=== PATIENT | female | born 1935 | race Caucasian/White ===

== ENCOUNTER 2017-09-21 05:36 | Observation (INO) | payer MEDICARE ==
[~2017-09-21] VITALS: Ht 152.4 cm; Wt 67.5 kg
[~2017-09-21 05:36] MED LIST: ATOR80TA45 PO; CALC1TAB12 PO; COLA100C5 PO; FERR325T18 PO; GLUCCAP PO; LOSA100T3 PO; MULTTAB67 PO; NEXI20CA PO; OXYB5TAB8 PO
[2017-09-21] MEDS ORDERED: LACTATED RINGER'S 1000 ML IV PRN (06:00)
[2017-09-21] MEDS ORDERED: ceFAZolin 2 GM PREMIX 50 ML IV SCH (06:00)
[2017-09-21] MEDS ORDERED: CHLORHEXIDINE GLUCONATE 4% SOLN 120 ML BTL TOPICAL SCH (06:00)
[2017-09-21] MEDS ORDERED: SODIUM CHLORID 0.9% 500 ML IV PRN (06:00)
[2017-09-21] MEDS ORDERED: POVIDONE IODINE 5% (ANTISEPSIS KIT) 4 APPLICATIONS EACH NARE PRN (06:00)
[2017-09-21] MEDS ORDERED: METOPROLOL TARTRATE 25 MG TAB PO PRN (06:00)
[2017-09-21] MEDS ORDERED: CHLORHEXIDINE GLUCONATE 2 % 1 PACK (2 CLOTHS) TOPICAL PRN (06:00)
[2017-09-21] MEDS ORDERED: INSULIN HUMAN REGULAR 1,000 UNITS/10 ML VIAL SQ PRN (06:00)
[2017-09-21 06:20] VITALS: PULSE 58
[2017-09-21] MEDS ORDERED: MIDAZOLAM HCL 2 MG/2 ML VIAL ONE (06:26)
[2017-09-21] MEDS ORDERED: BUPIVACAINE HCL PF 0.5% 30 ML VIAL ONE ×2 (06:26→06:30)
[2017-09-21] MEDS ORDERED: FAT EMULSION 20% INJ 0 ML ONE (06:26)
[2017-09-21] MEDS ORDERED: MIDAZOLAM HCL 2 MG/2 ML VIAL IV ONE (06:30)
[2017-09-21] MEDS ORDERED: DO NOT ADM ANY ANTICOAGULANT DRUGS PRN (07:45)
[2017-09-21] MEDS: LACTATED RINGER'S 1000 ML INJ 1,000 ML IV SCH ×2 (08:00→17:28)
[2017-09-21] MEDS ORDERED: ONDANSETRON HCL 4 MG/2 ML VIAL IV PUSH PRN (08:00)
[2017-09-21] MEDS ORDERED: ACETAMINOPHEN/HYDROcodone 325 MG/5 MG TAB PO PRN ×2 (08:00)
[2017-09-21] MEDS ORDERED: MORPHINE SULFATE 4 MG/ML INJ IV PUSH PRN (08:00)
[2017-09-21] MEDS ORDERED: HYDR-3516 PO (08:02)
--- NOTE | 2017-09-21 08:05 | MP ---
cc: Emory Dow MD DATE OF OPERATION: 09/21/2017 PREOPERATIVE DIAGNOSIS: Carpal tunnel syndrome, right wrist. POSTOPERATIVE DIAGNOSIS: Carpal tunnel syndrome, right wrist. OPERATIVE PROCEDURE: Carpal tunnel release, right wrist. SURGEON: Dr. Dow. ANESTHESIA: General. TECHNIQUE: After induction of anesthesia, the right upper extremity thoroughly prepped with alcohol and ChloraPrep and draped in routine fashion. After application of Esmarch bandage, tourniquet was inflated to 250 mmHg. A vertical incision was made along the thenar crease and then zigzagging across the flexion crease of the wrist and proximally for 2 cm. The incision deepened through the subcutaneous tissue. Palmaris longus was divided in the line of the skin incision and a flexor retinaculum was incised. Dissection carried out underneath the volar carpal ligament, thereby dividing it vertically gradually for a complete release. The contents of the carpal tunnel were examined. There was nothing abnormal other than the fact that there is some constriction of the median nerve. Some epineural release was carried out, but nothing extensive. A release was carried out proximally for 2 cm. Tourniquet was released. Hemostasis obtained with cautery. Skin and subcutaneous tissue closed in a single layer of interrupted vertical mattress 4-0 nylon sutures. Dressings were applied with Xeroform, 4 x 4s and Sof-Rol and a volar well-padded fiberglass splint applied and secured with Amanda and Jesse bandage maintaining the wrist in some extension. There was good circulation to the fingers when we were done. The patient tolerated the procedure well. Transfusions and complications, none. Postop condition, satisfactory. Prognosis, good. Emory Dow MD SS/DL , 07:50 AM , 08:04 AM
[2017-09-21] MEDS ORDERED: METOPROLOL TARTRATE 5 MG/5 ML VIAL ONE ×2 (08:27→09:09)
--- NOTE | 2017-09-21 08:47 | EKG ---
Date Performed: 09/21/2017 Time Performed: 06:12:12 PTAGE: 82 years EKG: Sinus rhythm NORMAL ECG NO PREVIOUS TRACING DOCTOR: Syed Vaughn Interpretating Date/Time 09/21/2017 08:45:37
[2017-09-21] MEDS ORDERED: METOPROLOL TARTRATE 5 MG/5 ML VIAL IV PUSH ONE (09:15)
[2017-09-21 09:41] LABS: AUTOMATED NEUTROPHIL # 4.2 TH/MM3 (1.8-7.7); BASOPHIL # 0.1 TH/MM3 (0-0.2); EOSINOPHIL # 0.2 TH/MM3 (0-0.4); EOSINOPHIL % 2.9 % (0.0-4.0); HEMATOCRIT 35.1 % (35.0-46.0); HEMOGLOBIN 12.1 GM/DL (11.6-15.3); LYMPH % 13.6 % (9.0-44.0); LYMPHOCYTE # 0.7 TH/MM3 (1.0-4.8); MEAN CELL VOLUME 95.5 FL (80.0-100.0); MEAN CORPUSCULAR HEMOGLOBIN 33.1 PG (27.0-34.0); MEAN CORPUSCULAR HGB CONC 34.6 % (32.0-36.0); MEAN PLATELET VOLUME 7.8 FL (7.0-11.0); MONO % 3.9 % (0.0-8.0); MONOCYTE # 0.2 TH/MM3 (0-0.9); NEUT % 78.6 % (16.0-70.0); PLATELET COUNT 264 TH/MM3 (150-450); RED BLOOD COUNT 3.67 MIL/MM3 (4.00-5.30); RED CELL DISTRIBUTION WIDTH 13.3 % (11.6-17.2); WHITE BLOOD COUNT 5.4 TH/MM3 (4.0-11.0)
[2017-09-21] MEDS: METOPROLOL TARTRATE 25 MG TAB PO SCH ×3 (10:00→23:00)
--- NOTE | 2017-09-21 10:15 | EKG ---
Date Performed: 09/21/2017 Time Performed: 09:30:37 PTAGE: 82 years EKG: ATRIAL FIBRILLATION WITH RAPID VENTRICULAR RESPONSE LOW QRS VOLTAGE IN PRECORDIAL LEADS MOD ERATE ST DEPRESSION ABNORMAL ECG PREVIOUS TRACING : 09/21/2017 06.12 DOCTOR: Syed Vaughn Interpretating Date/Time 09/21/2017 10:13:32
[2017-09-21] MEDS ORDERED: PILL SPLITTER OTHER PRN (11:00)
[2017-09-21] MEDS ORDERED: METOPROLOL TARTRATE 5 MG/5 ML VIAL IV PRN (11:00)
[2017-09-21] MEDS ORDERED: SODIUM CHLORIDE 0.9% FLUSH 10 ML FLUSH IV FLUSH PRN (11:45)
[2017-09-21] MEDS ORDERED: NALOXONE HCL 0.4 MG/ML AMP IV PUSH PRN (11:45)
[2017-09-21] MEDS ORDERED: ePHEDrine/NS 25 MG/5 ML SYRINGE IV ONE (12:00)
[2017-09-21] MEDS ORDERED: PROPOFOL 200 MG/20 ML AMP IV ONE (12:00)
[2017-09-21] MEDS ORDERED: ONDANSETRON HCL 4 MG/2 ML VIAL IV ONE (12:00)
[2017-09-21] MEDS ORDERED: LIDOCAINE HCL 1% PF 5 ML SYRINGE OTHER ONE (12:00)
[2017-09-21] MEDS ORDERED: DEXAMETHASONE SOD PHOS 4 MG/ML VIAL IV ONE (12:00)
[2017-09-21] MEDS ORDERED: PHENYLEPH/NS 1000 MCG/10 ML SYR IV ONE (12:00)
--- NOTE | 2017-09-21 12:24 | HHI.HP ---
[facility] Sue Hairston D.O. Admission Diagnosis Diagnoses: Travel History International Travel<30 Days: No Contact w/Intl Traveler <30 Da: No Traveled to Known Affected Are: No History of Present Illness hx from patient, nursing staff and review of med records pt stated she came to hospital for her carpal tunnel sx of right hand post operatively, pt was noted to be in afib iwth HR around 120s to 130s orthopedics and anesthesiology had consulted cardiology who has given patient metoprolol 5mg iv x 3 with metoprolol 12.5 mg po one dose at time of my exam, pt's heart rate is 59 bp is stable at 118/70 pt denies any recent fever/ n/v/d/blood in stool or urine denies ches pain or palpitations or near syncopal denies any other symptoms denies prior hx of afib / tia/ cva Review of Systems Except as stated in HPI: all other systems reviewed are Neg Past Family Social History Past Medical History htn gerd hyperlipidemia urinary incontinence Past Surgical History left carpal tunnel right carpal tunnel today Allergies: Coded Allergies: *MDRO Multi-Drug Resistant Organism (Unverified Allergy, Unknown, 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 Family History none that she knows of Social History denies smoking/ eoth abuse/ drug abuse lives with her two grandsons Physical Exam Vital Signs Vital Signs Date Time Temp Pulse Resp B/P (MAP) Pulse Ox O2 Delivery O2 Flow Rate FiO2 09/21/17 08:45 114 16 109/68 (82) 98 Nasal Cannula 2 09/21/17 08:30 124 16 113/60 (77) 98 Nasal Cannula 2 09/21/17 08:15 122 16 132/65 (87) 94 Nasal Cannula 2 09/21/17 08:00 62 16 136/68 (90) 95 Room Air 09/21/17 07:45 97.6 60 16 130/61 (84) 93 09/21/17 06:36 Nasal Cannula 2 09/21/17 06:20 58 09/21/17 06:11 97.9 60 18 155/69 (97 99 Physical Exam GENERAL: This is a well-nourished, well-developed patient, in no apparent distress. SKIN: No rashes, ecchymoses or lesions. Cool and dry. HEAD: Atraumatic. Normocephalic. No temporal or scalp tenderness. EYES: No scleral icterus. No injection or drainage. ENT: Nose without bleeding, purulent drainage or septal hematoma. Airway patent. NECK: Trachea midline. No JVD. Supple, nontender, no meningeal signs. CARDIOVASCULAR: Regular rate and rhythm without murmurs, gallops, or rubs. RESPIRATORY: Clear to auscultation. Breath sounds equal bilaterally. No wheezes , rales, or rhonchi. GASTROINTESTINAL: Abdomen soft, non-tender, nondistended.No guarding. MUSCULOSKELETAL: Extremities without clubbing, cyanosis, or edema. . No calf tenderness. RUE with intact sensation, had nerve block done, no pain, able to move NEUROLOGICAL: Awake and alert. Motor and sensory grossly within normal limits. Normal speech. Laboratory Laboratory Tests Test 09/21/17 09:27 09/21/17 11:50 White Blood Count 5.4 Red Blood Count 3.67 Hemoglobin 12.1 Hematocrit 35.1 Mean Corpuscular Volume 95.5 Mean Corpuscular Hemoglobin 33.1 Mean Corpuscular Hemoglobin Concent 34.6 Red Cell Distribution Width 13.3 Platelet Count 264 Mean Platelet Volume 7.8 Neutrophils (%) (Auto) 78.6 Lymphocytes (%) (Auto) 13.6 Monocytes (%) (Auto) 3.9 Eosinophils (%) (Auto) 2.9 Basophils (%) (Auto) 1.0 Neutrophils # (Auto) 4.2 Lymphocytes # (Auto) 0.7 Monocytes # (Auto) 0.2 Eosinophils # (Auto) 0.2 Basophils # (Auto) 0.1 CBC Comment DIFF FINAL Differential Comment Result Diagram: 09/21/17926 Caprini VTE Risk Assessment Caprini VTE Risk Assessment: Mod/High Risk (score >= 2) Caprini Risk Assessment Model Point Value = 1 Point Value = 2 Point Value = 3 Point Value = 5 Age 41-60 Minor surgery BMI > 25 kg/m2 Swollen legs Varicose veins or History of unexplained or recurrent spontaneous Oral contraceptives or hormone replacement Sepsis (< 1 month) Serious lung disease, including pneumonia (< 1 month) Abnormal pulmonary function Acute myocardial infarction Congestive heart failure (< 1 month) History of inflammatory bowel disease Medical patient at bed rest Age 61-74 Arthroscopic surgery Major open surgery (> 45 min) Laparoscopic surgery (> 45 min) Malignancy Confined to bed (> 72 hours) Immobilizing plaster cast Central venous access Age >= 75 History of VTE Family history of VTE Factor V Leiden Prothrombin [id number] Lupus anticoagulant Anticardiolipin antibodies Elevated serum homocysteine Heparin-induced thrombocytopenia Other congenital or acquired thrombophilia Stroke (< 1 month) Elective arthroplasty Hip, pelvis, or leg fracture Acute spinal cord injury (< 1 month) Prophylaxis Regimen Total Risk Factor Score Risk Level Prophylaxis Regimen 0-1 Low Early ambulation 2 Moderate Order ONE of the following: *Sequential Compression Device (SCD) *Heparin 5000 units SQ BID 3-4 Higher Order ONE of the following medications: *Heparin 5000 units SQ TID *Enoxaparin/Lovenox 40 mg SQ daily (WT < 150 kg, CrCl > 30 mL/min) *Enoxaparin/Lovenox 30 mg SQ daily (WT < 150 kg, CrCl > 10-29 mL/min) *Enoxaparin/Lovenox 30 mg SQ BID (WT < 150 kg, CrCl > 30 mL/min) AND/OR *Sequential Compression Device (SCD) 5 or more Highest Order ONE of the following medications: *Heparin 5000 units SQ TID (Preferred with Epidurals) *Enoxaparin/Lovenox 40 mg SQ daily (WT < 150 kg, CrCl > 30 mL/min) *Enoxaparin/Lovenox 30 mg SQ daily (WT < 150 kg, CrCl > 10-29 mL/min) *Enoxaparin/Lovenox 30 mg SQ BID (WT < 150 kg, CrCl > 30 mL/min) AND *Sequential Compression Device (SCD) Assessment and Plan Assessment and Plan Impression: Afib, newly found s/p carpal tunnel surgery under general anesthesia HTN hyperlipidemia gerd urinary incontinence Plan: rate control with metoprolol per cardiology orders tele monitoring anticoagulation to discuss by cardiology echo resume brandan emeds watch for BP drop with addition of metoprolol Kareem Rodrigez MD Sep 21, 2017 12:24
[2017-09-21 12:37] LABS: ALBUMIN 3.8 GM/DL (3.4-5.0); ALT (GPT) 18 U/L (10-53); AST (GOT) 24 U/L (15-37); BICARBONATE 25.5 MEQ/L (21.0-32.0); BLOOD UREA NITROGEN 22 MG/DL (7-18); CALCIUM 9.1 MG/DL (8.5-10.1); CHLORIDE 105 MEQ/L (98-107); CREATININE 1.38 MG/DL (0.50-1.00); GLOMERULAR FILTRATION RATE 37 ML/MIN (>89); GLUCOSE,RANDOM 145 MG/DL (74-106); MAGNESIUM 2.2 MG/DL (1.5-2.5); SODIUM (NA) 138 MEQ/L (136-145)
[2017-09-21 12:40] LABS: ALKALINE PHOSPHATASE 67 U/L (45-117); TOTAL BILIRUBIN ADULT 0.4 MG/DL (0.2-1.0); TOTAL PROTEIN 7.3 GM/DL (6.4-8.2)
[2017-09-21 12:41] LABS: TROPONIN I LESS THAN 0.02 NG/ML (0.02-0.05)
--- NOTE | 2017-09-21 14:18 | RADRPT ---
EXAM DATE/TIME: 09/21/2017 14:40 [facility] COMPARISON: No previous studies available for comparison. INDICATIONS : New onset atrial fibrillation MEDICAL HISTORY : high blood pressure SURGICAL HISTORY : lower extremity surgery ENCOUNTER: Initial ACUITY: 1 day PAIN SCORE: 0/10 LOCATION: Bilateral chest FINDINGS: A single view of the chest demonstrates the lungs to be symmetrically aerated without evidence of mas s, infiltrate or effusion. The cardiomediastinal contours are unremarkable. Osseous structures are intact. Marked atherosclerotic disease. CONCLUSION: Normal examination. Bilateral shoulder arthroplasties. Syed Khan MD on September 21, 2017 at 14:15 Board Certified Radiologist. This report was verified electronically.
[2017-09-21 15:00] VITALS: BP 134/66; PULSE 54; RESP 20; TEMP 98; O2SAT 97
--- NOTE | 2017-09-21 15:14 | MB ---
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 The patient converted with IV Lopressor, p.o. Lopressor to sinus bradycardia. She denies chest pain, fever, chills, cough, GI or bleeding, PND, orthopnea, syncope or dizziness. PAST MEDICAL: As per History Of Present Illness. SOCIAL HISTORY: She is followed by Dr. Ella Hairston. ALLERGIES: Multi-drug resistant organism, "MRSA". MEDICATIONS: 1. Atorvastatin 80 mg at bedtime. 2. Docusate 100 mg b.i.d. 3. Calcium with vitamin D 500 b.i.d. 4. Ferrous sulfate 325 b.i.d. 5. Multivitamins 1 tab daily. 6. She received metoprolol 5 mg IV q.5 minutes x3. 7. She is on standing dose of Lopressor 12.5 mg p.o. every 6 hours. PHYSICAL EXAMINATION: VITAL SIGNS: Currently pulse is 54, blood pressure 130/61, respiratory rate 16, temperature recorded at 7:45 a.m. 97.6%. GENERAL: She is alert and oriented x3, in no acute distress. NECK: Supple. No JVD. No bruit. CARDIOVASCULAR: S1, S2. No murmurs, rubs or gallops. LUNGS: Clear to auscultation bilaterally. ABDOMEN: Soft, nontender, nondistended with positive bowel sounds. EXTREMITIES: No lower extremity edema. IMAGING STUDIES: Chest x-ray shows normal examination. Bilateral shoulder arthroplasties. EKG postop shows atrial fibrillation, rate of 113 beats per minute, T-wave inversion in V2 and V1. There also appears to be possible flutter waves in V1 and V2. Repeat EKG shows normal sinus rhythm at 62 beats per minute, otherwise normal. LABORATORY DATA: White count 5.4, hemoglobin 12.1, hematocrit 35.1, platelet count 264. INR is not done. Sodium 138, potassium 4.0, chloride 105, bicarbonate 25.5, BUN 22, creatinine 1.38, glucose 145. Troponin is less than 0.02. DIAGNOSES: 1. Paroxysmal atrial flutter with rapid ventricular response. 2. Chronic renal insufficiency and/or acute renal failure. 3. Status post bilateral shoulder arthroplasties. DISCUSSION: The patient's CHADS-VASc score is at least 3 given her age greater than 75 and female gender. Therefore, Coumadin and/or novel oral anticoagulant agent is indicated; however, she is immediately postop. Therefore, we will hold her anticoagulation. In the immediate postoperative setting she is cardioverted on Lopressor. I do want her admitted overnight for observation. If she is hemodynamically stable and asymptomatic in the a.m., she can be discharged from a cardiovascular standpoint. I have instructed her with a nurse present at the bedside to followup with me in the office the following day and to bring her pill bottles in with her. The patient understands. MD AMBERLY Zambrano/NATALIA , 02:51 PM , 03:13 PM
[2017-09-21] MEDS: FERROUS SULFATE 325 MG (65 MG ELEMENTAL IRON) TAB PO SCH (17:17)
[2017-09-21 17:24] LABS: TROPONIN I LESS THAN 0.02 NG/ML (0.02-0.05)
[2017-09-21] MEDS: MULTIVITAMIN TAB PO SCH (17:31)
[2017-09-21] MEDS ORDERED: GLUCOSAMINE CHONDROITIN VIT C PO SCH (21:00)
[2017-09-21] MEDS ORDERED: ATORVASTATIN 80 MG TAB PO SCH (21:00)
[2017-09-21] MEDS: OXYBUTYNIN CHLORIDE 5 MG TAB PO SCH (21:11)
[2017-09-21] MEDS: DOCUSATE SODIUM 100 MG CAP PO SCH (21:11)
[2017-09-21] MEDS: CALCIUM/VITAMIN D 250 MG/125 U TAB PO SCH (21:14)
[2017-09-21] MEDS: SODIUM CHLORIDE 0.9% FLUSH 10 ML FLUSH IV FLUSH SCH (21:17)
[2017-09-22] VITALS: BP_SYST 133; BP_DIAS 60; BP_DIAS 61; PULSE 53; PULSE 71; RESP 17; RESP 18; TEMP 97.3; TEMP 97.9; O2SAT 93; O2SAT 96
[2017-09-22 00:47] LABS: TROPONIN I LESS THAN 0.02 NG/ML (0.02-0.05)
[2017-09-22] MEDS: METOPROLOL TARTRATE 25 MG TAB PO SCH (05:34)
[2017-09-22 06:06] VITALS: BP 134/70; PULSE 53; RESP 18; TEMP 97.6
[2017-09-22] MEDS ORDERED: METO25TA3 PO (06:15)
[2017-09-22 07:54] VITALS: BP 157/70; PULSE 50; RESP 16; TEMP 97.8; O2SAT 94
[2017-09-22] MEDS: OXYBUTYNIN CHLORIDE 5 MG TAB PO SCH (08:25)
[2017-09-22] MEDS: FERROUS SULFATE 325 MG (65 MG ELEMENTAL IRON) TAB PO SCH (08:25)
[2017-09-22] MEDS: MULTIVITAMIN TAB PO SCH (08:25)
[2017-09-22] MEDS: DOCUSATE SODIUM 100 MG CAP PO SCH (08:26)
[2017-09-22] MEDS: CALCIUM/VITAMIN D 250 MG/125 U TAB PO SCH (08:26)
[2017-09-22] MEDS: SODIUM CHLORIDE 0.9% FLUSH 10 ML FLUSH IV FLUSH SCH (08:26)
[2017-09-22 08:58] LABS: AUTOMATED NEUTROPHIL # 4.9 TH/MM3 (1.8-7.7); BASOPHIL % 0.7 % (0.0-2.0); EOSINOPHIL # 0.1 TH/MM3 (0-0.4); EOSINOPHIL % 1.3 % (0.0-4.0); HEMATOCRIT 33.8 % (35.0-46.0); HEMOGLOBIN 11.6 GM/DL (11.6-15.3); LYMPH % 23.4 % (9.0-44.0); LYMPHOCYTE # 1.7 TH/MM3 (1.0-4.8); MEAN CELL VOLUME 95.8 FL (80.0-100.0); MEAN CORPUSCULAR HEMOGLOBIN 32.9 PG (27.0-34.0); MEAN CORPUSCULAR HGB CONC 34.4 % (32.0-36.0); MEAN PLATELET VOLUME 7.9 FL (7.0-11.0); MONO % 8.2 % (0.0-8.0); MONOCYTE # 0.6 TH/MM3 (0-0.9); NEUT % 66.4 % (16.0-70.0); PLATELET COUNT 327 TH/MM3 (150-450); RED BLOOD COUNT 3.53 MIL/MM3 (4.00-5.30); RED CELL DISTRIBUTION WIDTH 13.3 % (11.6-17.2); WHITE BLOOD COUNT 7.4 TH/MM3 (4.0-11.0)
[2017-09-22 09:25] LABS: CALCIUM 9.1 MG/DL (8.5-10.1); CREATININE 1.31 MG/DL (0.50-1.00)
--- NOTE | 2017-09-22 10:07 | HHI.DCPOC ---
Discharge Care Plan Diagnosis: (1) Status post reverse arthroplasty of right shoulder Your Health Problems Are: Difficulty with ADL Exercise Tolerance Goals to Promote Your Health * To prevent worsening of your condition and complications * To maintain your health at the optimal level Directions to Meet Your Goals Take your medications as prescribed Follow your dietary instruction Follow activity as directed Keep your appointments as scheduled Take your immunizations and boosters as scheduled If your symptoms worsen call your PCP, if no PCP go to Urgent Care Center or Emergency Room Smoking is Dangerous to Your Health. Avoid second hand smoke Call the 24-hour hour crisis hotline for domestic abuse at Rustam Crane MD Sep 22, 2017 10:07
--- NOTE | 2017-09-22 10:09 | HHI.PR ---
Subjective Remarks F/U Fib. 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 Objective Vitals Vital Signs Date Time Temp Pulse Resp B/P (MAP) Pulse Ox O2 Delivery O2 Flow Rate FiO2 09/22/17 07:54 97.8 50 16 157/70 (99) 94 09/22/17 06:06 97.6 53 18 134/70 (91) 09/22/17 00:00 () 09/22/17 00:00 97.3 53 17 133/60 (84) 96 09/21/17 15:00 98.0 54 20 134/66 (88) 97 09/21/17 13:00 54 16 130/61 (84) 99 09/21/17 12:00 52 16 138/63 (88) 97 Nasal Cannula 2 09/21/17 11:00 56 16 136/64 (88) 99 Nasal Cannula 2 09/21/17 10:45 108 16 98 Nasal Cannula 2 I/O 09/21/17 09/21/17 09/21/17 09/22/17 09/22/17 09/22/17 07:00 15:00 23:00 07:00 15:00 23:00 Intake Total 500 ml 400 ml Output Total 405 ml 3 ml Balance 95 ml 400 ml -3 ml Intake Oral 400 ml IV Total 200 ml Other 300 ml Output Urine Total 400 ml 3 ml Estimated Blood Loss 5 ml # Voids 1 # Bowel Movements 0 Result Diagram: 09/22/17 0715 09/22/17 0715 Imaging Last Impressions Chest X-Ray 09/21/17 0000 Signed Impressions: Service Date/Time: Thursday, September 21, 2017 14:40 - CONCLUSION: Normal examination. Bilateral shoulder arthroplasties. Syed Khan MD Objective Remarks GENERAL: This is a well-nourished, well-developed patient, in no apparent distress. SKIN: No rashes, ecchymoses or lesions. Cool and dry. CARDIOVASCULAR: John with regular rhythm without murmurs, gallops, or rubs. RESPIRATORY: Clear to auscultation. Breath sounds equal bilaterally. No wheezes , rales, or rhonchi. GASTROINTESTINAL: Abdomen soft, non-tender, nondistended. No guarding. MUSCULOSKELETAL: Extremities without clubbing, cyanosis, or edema. . No calf tenderness. RUE with intact sensation, had nerve block done, no pain, able to move NEUROLOGICAL: Awake and alert. Motor and sensory grossly within normal limits. Normal speech. Procedures CTR A/P Problem List: (1) Status post reverse arthroplasty of right shoulder ICD Code: Z96.611 - Status post reverse arthroplasty of right shoulder Status: Acute Assessment and Plan Afib, newly found now SB on BB. Will adjust Lopressor lowered to 12.5 mg twice a day. Patient to monitor heart rate at home. To see cardiology tomorrow CHADS score of 3 to consider anticoagulation/antiplatelets after clearance from orthopedic surgery s/p carpal tunnel surgery under general anesthesia. Stable continue pain management counseled regarding narcotics Multiple medical conditions of HTN, hyperlipidemia, GERD, urinary incontinence of chronic kidney disease stage III but stable Discharge Planning Discharge patient to home Condition on discharge: Improved Regular Diet as tolerated Ad Jessa activity. Nonweightbearing right upper extremity Rx written: Lopressor, hydrocodone Follow-up with primary care physician cardiology Rustam Crane MD Sep 22, 2017 10:09
[2017-09-22] MEDS ORDERED: POTASSIUM CHLORIDE 10 MEQ CONTROLLED RELEASE TAB PO ONE (11:00)
[2017-09-22 12:11] VITALS: BP 113/83; PULSE 50; RESP 18; TEMP 97.2; O2SAT 98
[2017-09-22] MEDS: LACTATED RINGER'S 1000 ML INJ 1,000 ML IV SCH (14:00)
--- NOTE | 2017-09-22 14:04 | ECHRPT ---
Indication: ATRIAL FIB/FLUTTER CONCLUSIONS Normal left ventricular size. Wall thickness is measured at the upper limits of normal. The left ventricular systolic function is normal with an estimated ejection fraction in the range of 55-60%. The left atrial size is mildly dilated. Aortic valve sclerosis is present. There is trace tricuspid valve regurgitation. The estimated pulmonary arterial pressure is 40.9 mmHg. The pulmonary valve is not well visualized. A prominent epicardial fat pad is present. BP: 134 / 70 HR: 53 Rhythm: Sinus MEASUREMENTS (Male / Female) Normal Values Technical Quality:Fair 2D ECHO LV Diastolic Diameter PLAX 4.1 cm 4.2 - 5.9 / 3.9 - 5.3 cm LV Systolic Diameter PLAX 2.8 cm IVS Diastolic Thickness 1.0 cm 0.6 - 1.0 / 0.6 - 0.9 cm LVPW Diastolic Thickness 1.0 cm 0.6 - 1.0 / 0.6 - 0.9 cm LV Relative Wall Thickness 0.5 RV Internal Dim ED PLAX 2.3 cm LVOT Diameter 1.9 cm Aortic Root Diameter 3.4 cm LA Systolic Diameter LX 3.7 cm 3.0 - 4.0 / 2.7 - 3.8 cm M-MODE AV Cusp Separation MM 1.6 cm DOPPLER AV Peak Velocity 104.0 cm/s AV Peak Gradient 4.3 mmHg AV Mean Gradient 3.0 mmHg AV Velocity Time Integral 23.3 cm LVOT Peak Velocity 98.5 cm/s LVOT Peak Gradient 3.9 mmHg LVOT Velocity Time Integral 25.0 cm AV Area Cont Eq vti 3.0 cm AV Area Cont Eq pk 2.7 cm Mitral E Point Velocity 75.5 cm/s Mitral A Point Velocity 61.7 cm/s Mitral E to A Ratio 1.2 LV E' Lateral Velocity 8.3 cm/s Mitral E to LV E' Lateral Ratio 9.1 LV E' Septal Velocity 4.6 cm/s Mitral E to LV E' Septal Ratio 16.5 TR Peak Velocity 278.0 cm/s TR Peak Gradient 30.9 mmHg Right Atrial Pressure 10.0 mmHg Pulmonary Artery Systolic Pressu 40.9 mmHg Right Ventricular Systolic Press 40.9 mmHg PV Peak Velocity 54.1 cm/s PV Peak Gradient 1.2 mmHg FINDINGS LEFT VENTRICLE Normal left ventricular size. Wall thickness is measured at the upper limits of normal. The left ventricular systolic function is normal with an estimated ejection fraction in the range of 55-60%. RIGHT VENTRICLE Normal right ventricular size and systolic function. LEFT ATRIUM The left atrial size is mildly dilated. RIGHT ATRIUM The right atrial size is normal. ATRIAL SEPTUM No atrial level shunt is demonstrated by color flow Doppler interrogation. AORTA The aortic root and proximal ascending aorta are normal in size on limited imaging. MITRAL VALVE Structurally normal mitral valve. No mitral valve stenosis or regurgitation. AORTIC VALVE Aortic valve sclerosis is present. TRICUSPID VALVE There is trace tricuspid valve regurgitation. The estimated pulmonary arterial pressure is 40.9 mmHg. PULMONARY VALVE The pulmonary valve is not well visualized. VESSELS The inferior vena cava is normal in size. PERICARDIUM No pericardial effusion. A prominent epicardial fat pad is present. Syed Vaughn MD, FACC (Electronically Signed) Final Date:22 September 2017 14:03
[2017-09-22 15:39] VITALS: PULSE 55
[2017-09-22 16:00] VITALS: BP 138/58; PULSE 70; RESP 17; TEMP 97.5; O2SAT 97
--- NOTE | 2017-09-22 16:34 | EKG ---
Date Performed: 09/21/2017 Time Performed: 17:53:43 PTAGE: 82 years EKG: SINUS BRADYCARDIA BORDERLINE ECG PREVIOUS TRACING : 09/21/2017 09.30 Since the previous tracing, no significant change noted DOCTOR: Dave Crow Interpretating Date/Time 09/22/2017 16:29:47
--- NOTE | 2017-09-22 16:35 | EKG ---
Date Performed: 09/22/2017 Time Performed: 00:41:44 PTAGE: 82 years EKG: Sinus bradycardia with borderline 1st degree A-V block Septal T wave changes are nonspecifi c Borderline ECG PREVIOUS TRACING : 09/21/2017 17.53 Since the previous tracing, no significant change noted DOCTOR: Dave Crow Interpretating Date/Time 09/22/2017 16:29:56
[2017-09-22] MEDS ORDERED: METOPROLOL TARTRATE 25 MG TAB PO SCH (21:00)
== END 2017-09-22 16:25 | disposition home or self-care (01) ==
LOC: HSDC 05:36 → HSDI 11:38 → N06A 14:35
PROVIDERS: ADMIT Internal Medicine; ATTEND Internal Medicine
DX: G56.01 Carpal tunnel syndrome, right upper limb (principal); I48.91 Unspecified atrial fibrillation; I48.92 Unspecified atrial flutter; I12.9 Hypertensive chronic kidney disease with stage 1 through stage 4 chronic kidney disease, or unspecified chronic kidney disease; N18.3 Chronic kidney disease, stage 3 (moderate); E78.5 Hyperlipidemia, unspecified; R32 Unspecified urinary incontinence; K21.9 Gastro-esophageal reflux disease without esophagitis; Z79.899 Other long term (current) drug therapy
CPT/HCPCS: 01810; 64415; 64721; 71045; 80048; 80053; 82550; 83735; 84443; 84484; 85025; 93005; 93306; 97161; G0378; G8987; G8988; J0690; J1100; J2250; J2370; J2405; J3010; J7120

== ENCOUNTER 2017-12-14 10:18 | Observation (INO) ==
--- NOTE | 2017-12-14 11:22 | ED ---
HPI General Chief Complaint: Arrhythmia/Palpitations Stated Complaint: Cardiac Time Seen by Provider: 12/14/17 10:53 Source: patient Limitations: no limitations History of Present Illness HPI narrative: Patient is an 82-year-old female past medical history significant for hypertension hyperlipidemia and previous A. fib when she was undergoing a carpal tunnel surgery several months ago who presents with chief complaint of shortness of breath and palpitations that woke her from sleep at 1 AM today. She states that she is feeling much better now but she went to her primary care doctor's office who sent her here thinking she may need to be admitted as she was found to be in A. fib with RVR there. She denies chest pain at this time reports only mild dyspnea. No fevers cough congestion dysuria leg swelling. She is currently taking 6 mg of Coumadin daily and states that she did take it this morning. complaint: "heart racing" Onset (ago): hour(s) Severity: mild Context: occurred during rest Arrhythmia history: atrial fibrillation and on anti-coagulants Associated symptoms: shortness of breath Related Data Home Medications Medication Instructions Recorded Confirmed atorvastatin 80 mg PO BID 12/14/17 12/14/17 oxybutynin chloride 5 mg PO BID 12/14/17 12/14/17 warfarin 6 mg PO DAILY 12/14/17 12/14/17 Allergies Allergy/AdvReac Type Severity Reaction Status Date / Time No Known Allergies Allergy Unverified 12/14/17 10:59 Review of Systems Constitutional Denies fever(s) and Denies weakness Eyes Denies blurry vision ENT Denies epistaxis and Denies nasal congestion Cardiovascular Reports rapid heart rate Respiratory Reports dyspnea Gastrointestinal Denies melena, Denies diarrhea, Denies nausea, Denies vomiting and Denies hematemesis Genitourinary Denies urinary frequency Musculoskeletal Denies back pain Neurologic Denies dizziness and Denies headache(s) Psychiatric Denies confusion Endocrine Denies fatigue Hematologic/Lymphatic Denies easy bleeding [facility] Medical History Medical History Atrial fibrillation (Acute) Carpal tunnel syndrome (Acute) High cholesterol (Acute) Hypertension (Acute) Surgical History Surgical History H/O shoulder replacement (Acute) History of carpal tunnel surgery of left wrist (Acute) History of carpal tunnel surgery of right wrist (Acute) History of total right knee replacement (TKR) (Acute) Social History Social History Second Hand Smoke Exposure: No Smoking Status: Former smoker Tobacco Type: Cigarettes How Often Do You Have a Drink Containing Alcohol: 4 or more times a week Recent Travel in [facility] within the Last 8 Weeks: No Recent Out of Country Travel within the Last 8 Weeks: No Immunization History Tetanus Immunization: Unsure Hx Influenza Vaccine This Season: Yes Exam Narrative Exam Narrative: GENERAL: Pleasant, elderly, well-appearing well-nourished female in no acute distress, breathing comfortably on room air SKIN: Focused skin assessment warm/dry. HEAD: Atraumatic. Normocephalic. EYES: Pupils equal and round. No scleral icterus. No injection or drainage. ENT: No nasal bleeding or discharge. Mucous membranes pink and moist. NECK: Trachea midline. No JVD. CARDIOVASCULAR: Irregularly irregular tachycardia. No murmur appreciated. Intact distal pulses RESPIRATORY: No accessory muscle use. Clear to auscultation. Breath sounds equal bilaterally. GASTROINTESTINAL: Abdomen soft, non-tender, nondistended. Hepatic and splenic margins not palpable. MUSCULOSKELETAL: No obvious deformities. No clubbing. No cyanosis. No edema. NEUROLOGICAL: Awake and alert. No obvious cranial nerve deficits. Motor grossly within normal limits. Normal speech. PSYCHIATRIC: Appropriate mood and affect; insight and judgment normal. Course Hospital Course: Initial EKG revealed A. fib with RVR with stable BP. Patient was placed on a monitoring and evaluation advisor. IV was established. Labs and chest x-ray were ordered. 5 mg metoprolol every 5 minutes was given for rate control. Reevaluation(s) Reevaluation #1: Patient has had 3 doses of 5 mg metoprolol after which her HR improved from the 140s-160s to the 110s with BP remaining stable in the 140s. Patient continues to feel well. Time: 12:31 Reevaluation #2: Patient could use to feel well. She states that she would like to go home. I spoke to Dr. Crow, her shellfish meat separator operator, whom would recommend that she be admitted overnight for observation because he has concerns about her compliance with her medications. He states that she is supposed to be on Lopressor though he is not sure of the dose. Patient has been made aware of Dr Crow's desire to have her admitted. Time: 12:59 Initial Documented Vital Signs Temperature 97.9 F 12/14/17 10:29 Pulse Rate 152 H 12/14/17 10:29 Respiratory Rate 28 H 12/14/17 10:29 Blood Pressure 133/86 12/14/17 10:29 Pulse Oximetry 95 12/14/17 10:29 Last Documented Vital Signs Temperature 97.9 F 12/14/17 10:29 Pulse Rate 118 H 12/14/17 12:26 Respiratory Rate 17 12/14/17 11:51 Blood Pressure 147/105 H 12/14/17 12:26 Pulse Oximetry 92 L 12/14/17 12:26 Medical Decision Making MDM Narrative Medical decision making narrative: Patient is an 82-year-old female who presents with chief complaint of dyspnea that woke her from sleep. On arrival here she was in atrial fibrillation with rapid ventricular response, but with a stable blood pressure. She was given 3 doses of 5 mg each of metoprolol after which her heart rate improved from the 160s to the 110s. Chest x-ray shows slight pulmonary edema. Initial labs relatively unremarkable. I spoke with Dr. Crow, her shellfish meat separator operator, who recommended that she come in overnight for observation and be restarted back on oral Lopressor as he states she has been noncompliant with this recently. I spoke with Dr. Ladd, the admitting physician, who agrees to admit her. Differential Diagnosis Differential Diagnosis: Differential diagnosis includes but is not limited to atrial fibrillation, ACS, pulmonary embolism, CHF exacerbation, pneumonia, and pneumothorax. Lab Data Lab results reviewed: Yes I reviewed the patient's lab results. Lab results narrative: Initial labs reveal mild creatinine elevation and mild hyperglycemia. Initial troponin negative. Labs otherwise unremarkable. Result diagrams: 12/14/17 10:20 12/14/17 10:20 Lab Results 12/14/17 12/14/17 12/14/17 Range/Units 10:20 10:20 10:20 WBC 7.8 (4.0-11.0) th/mm3 RBC 3.73 L (4.00-5.30) mil/mm3 Hgb 12.9 (11.6-15.3) gm/dL Hct 35.8 (35.0-46.0) % MCV 95.9 (80.0-100.0) fL MCH 34.5 H (27.0-34.0) pg MCHC 35.9 (32.0-36.0) % RDW 13.8 (11.6-17.2) % Plt Count 292 (150-450) th/mm3 MPV 8.1 (7.0-11.0) fL Neut % (Auto) 73.9 H (16.0-70.0) % Lymph % (Auto) 15.3 (9.0-44.0) % [place] % (Auto) 8.6 H (0.0-8.0) % Eos % (Auto) 1.0 (0.0-4.0) % Baso % (Auto) 1.2 (0.0-2.0) % Neut # (Auto) 5.8 (1.8-7.7) th/mm3 Lymph # (Auto) 1.2 (1.0-4.8) th/mm3 [place] # (Auto) 0.7 (0.0-0.9) th/mm3 Eos # (Auto) 0.1 (0.0-0.4) th/mm3 Baso # (Auto) 0.1 (0.0-0.2) th/mm3 WBC Differential . Differential Comment Auto diff final PT 36.1 H (9.8-11.6) sec INR 3.6 Ratio APTT 34.2 H (24.3-30.1) sec Sodium 141 (136-145) meq/L Potassium 4.1 (3.5-5.1) meq/L Chloride 105 (98-107) meq/L Carbon Dioxide 27.8 (21.0-32.0) meq/L Anion Gap 8 (5-15) meq/L BUN 18 (7-18) mg/dL Creatinine 1.47 H (0.50-1.00) mg/dL Estimated GFR 34 L (>89) mL/min Random Glucose 125 H (74-106) mg/dL Calcium 8.6 (8.5-10.1) mg/dL Magnesium (1.5-2.5) mg/dL Troponin I Less than 0.02 L (0.02-0.05) ng/mL B-Natriuretic Peptide (0-100) pg/mL TSH (0.358-3.740) uIU/mL 12/14/17 12/14/17 12/14/17 Range/Units 10:20 10:20 10:20 WBC (4.0-11.0) th/mm3 RBC (4.00-5.30) mil/mm3 Hgb (11.6-15.3) gm/dL Hct (35.0-46.0) % MCV (80.0-100.0) fL MCH (27.0-34.0) pg MCHC (32.0-36.0) % RDW (11.6-17.2) % Plt Count (150-450) th/mm3 MPV (7.0-11.0) fL Neut % (Auto) (16.0-70.0) % Lymph % (Auto) (9.0-44.0) % [place] % (Auto) (0.0-8.0) % Eos % (Auto) (0.0-4.0) % Baso % (Auto) (0.0-2.0) % Neut # (Auto) (1.8-7.7) th/mm3 Lymph # (Auto) (1.0-4.8) th/mm3 [place] # (Auto) (0.0-0.9) th/mm3 Eos # (Auto) (0.0-0.4) th/mm3 Baso # (Auto) (0.0-0.2) th/mm3 WBC Differential Differential Comment PT (9.8-11.6) sec INR Ratio APTT (24.3-30.1) sec Sodium (136-145) meq/L Potassium (3.5-5.1) meq/L Chloride (98-107) meq/L Carbon Dioxide (21.0-32.0) meq/L Anion Gap (5-15) meq/L BUN (7-18) mg/dL Creatinine (0.50-1.00) mg/dL Estimated GFR (>89) mL/min Random Glucose (74-106) mg/dL Calcium (8.5-10.1) mg/dL Magnesium 2.0 (1.5-2.5) mg/dL Troponin I (0.02-0.05) ng/mL B-Natriuretic Peptide 356 H (0-100) pg/mL TSH 4.570 H Cancelled (0.358-3.740) uIU/mL Imaging Data Attestation: I personally reviewed and interpreted this imaging study as follows : Radiologist's impression: Chest X-Ray 12/14/17 11:12 CONCLUSION: Increased interstitial markings and pulmonary vasculature suggestive of pulmonary edema. ECG Data EKG Prior to Arrival: No Attestation: I personally reviewed and interpreted this ECG as follows: Prior ECG tracings: not available for review Discharge Plan Discharge Disposition Patient Disposition: 30 Still Patient Discharge Condition Condition: Stable Discharge Details Diagnosis: Atrial fibrillation with RVR, Non-compliance Physicians Team ED Provider: Nany Lozano Primary Care Provider: Sue Jhaveri Rxs /Orders / Referrals /Forms Prescriptions: No Action warfarin 6 mg Tablet 6 mg PO DAILY RF: 0 atorvastatin 80 mg Tablet 80 mg PO BID RF: 0 oxybutynin chloride 5 mg Tablet 5 mg PO BID RF: 0 Referrals: Dave Crow MD [Physician] - 3 Days Status ED Status: With Doctor
[2017-12-14 11:37] LABS: Baso # (Auto) 0.1 th/mm3 (0.0-0.2); Baso % (Auto) 1.2 % (0.0-2.0); Eos # (Auto) 0.1 th/mm3 (0.0-0.4); Hematocrit 35.8 % (35.0-46.0); Hemoglobin 12.9 gm/dL (11.6-15.3); Lymph # (Auto) 1.2 th/mm3 (1.0-4.8); Lymph % (Auto) 15.3 % (9.0-44.0); Mean Corpuscular HGB Conc 35.9 % (32.0-36.0); Mean Corpuscular Hemoglobin 34.5 pg (27.0-34.0); Mean Corpuscular Volume 95.9 fL (80.0-100.0); Mean Platelet Volume 8.1 fL (7.0-11.0); Mono # (Auto) 0.7 th/mm3 (0.0-0.9); Mono % (Auto) 8.6 % (0.0-8.0); Neut # (Auto) 5.8 th/mm3 (1.8-7.7); Neut % (Auto) 73.9 % (16.0-70.0); Platelet Count 292 th/mm3 (150-450); Red Blood Count 3.73 mil/mm3 (4.00-5.30); Red Cell Distribution Width 13.8 % (11.6-17.2); White Blood Count 7.8 th/mm3 (4.0-11.0)
[2017-12-14] MEDS: Metoprolol Inj 5 MG/5 ML Vial IV.PUSH SCH ×3 (11:37→12:05)
--- NOTE | 2017-12-14 11:41 | XR ---
EXAM DATE: 12/14/2017 11:31 AM EDT AGE/SEX: 82 years / Female INDICATIONS: . Short of breath. CLINICAL DATA: This is the patient's initial encounter. Patient reports that signs and symptoms have been present for 1 day and indicates a pain score of 0/10. MEDICAL/SURGICAL HISTORY: Hypertension. None. [place] [facility] [place]. . FINDINGS: PA and lateral views of the chest demonstrate increased interstitial markings bilaterally with promin ence of the pulmonary vasculature suggestive of some pulmonary edema. The heart size is diffusely enl arged. No significant pleural effusions. No focal areas of parenchymal consolidation. The bony struct ures are stable compared to the prior study.. CONCLUSION: Increased interstitial markings and pulmonary vasculature suggestive of pulmonary edema. Electronically signed by: Shawn Robert MD 12/14/2017 11:40 AM EDT
[2017-12-14 11:47] LABS: Activated Partial Thrombo Time 34.2 sec (24.3-30.1); INR 3.6 Ratio; Prothrombin Time 36.1 sec (9.8-11.6)
[2017-12-14 12:03] LABS: Anion Gap 8 meq/L (5-15); Blood Urea Nitrogen 18 mg/dL (7-18); Calcium 8.6 mg/dL (8.5-10.1); Carbon Dioxide 27.8 meq/L (21.0-32.0); Chloride 105 meq/L (98-107); Glomerular Filtration Rate 34 mL/min (>89); Glucose,Random 125 mg/dL (74-106); Potassium 4.1 meq/L (3.5-5.1); Sodium 141 meq/L (136-145)
[2017-12-14 12:10] LABS: Thyroid Stimulating Hormone 4.57 uIU/mL (0.358-3.740)
[2017-12-14] MEDS ORDERED: Bisacodyl 10 MG Supp RECTAL PRN (13:41)
[2017-12-14] MEDS ORDERED: Temazepam 15 MG Capsule PO PRN ×2 (13:41→13:42)
[2017-12-14] MEDS ORDERED: Acetaminophen 325 MG Tablet PO PRN (13:42)
--- NOTE | 2017-12-14 14:32 | ECG ---
Date Performed: 12/14/2017 Time Performed: 10:51:16 PTAGE: 82 years EKG: ATRIAL FIBRILLATION WITH RAPID VENTRICULAR RESPONSE ABNORMAL RHYTHM ECG PREVIOUS TRACING : 09/22/2017 00.41 DOCTOR: Syed Vaughn Interpretating Date/Time 12/14/2017 14:31:49
--- NOTE | 2017-12-14 15:12 | P.HP ---
History of Present Illness Primary Care Physician: Sue Jhaveri DO Chief Complaint: sob, palpitations History of Present Illness: Patient is a pleasant 82-year-old female with past medical history significant for hypertension hyperlipidemia and previous A. fib diagnosed when she was undergoing a carpal tunnel surgery several months ago, who presents with chief complaint of shortness of breath and palpitations that woke her from sleep at 1 AM today. She states that she is feeling much better now but she went to her primary care doctor's office who sent her here thinking she may need to be admitted as she was found to be in A. fib with RVR there. She denies chest pain at this time reports only mild dyspnea. No fevers cough congestion dysuria leg swelling. She is currently taking 6 mg of Coumadin daily and states that she did take it this morning. Patient cardiology Dr Is Dr Vanessa who recommends admission in obs overnight, restart patient home meds. Patient feels better at this time and wants to go home Inpatient Certification: I certify that the inpatient services were ordered in accordance with Medicare regulations governing the order. This includes certification that hospital inpatient services are reasonable and necessary and in the case of services not specified as inpatient-only under 42 CFR 419.22(n), that they are appropriately provided as inpatient services in accordance to with the 2-midnight benchmark under 43 CFR 412.3(e) Review of Systems All other systems reviewed negative except as stated in HPI PMFSH - History History Provided By: Patient - Medical History Medical History: Medical History (Last Reviewed 12/14/17 @ 15:27 by Zaynab Ladd MD) Atrial fibrillation Carpal tunnel syndrome High cholesterol Hypertension - Surgical History Surgical History: Surgical History (Last Reviewed 12/14/17 @ 15:27 by Zaynab Ladd MD) H/O shoulder replacement History of carpal tunnel surgery of left wrist History of carpal tunnel surgery of right wrist History of total right knee replacement (TKR) - Family History Family History: Family History (Last Updated 12/14/17 @ 15:27 by Zaynab Ladd MD) Other Breast CA - Tobacco History Second Hand Smoke Exposure: No Tobacco Use In Past 30 Days: No Smoking Status: Former smoker Tobacco Type: Cigarettes - Alcohol History How Often Do You Have a Drink Containing Alcohol: 4 or more times a week - Travel History Recent Travel in the [facility] Within the Last 8 Weeks: No Recent Travel Out of the Country Within the Last 8 Weeks: No - Immunization History Tetanus Immunization: Unsure Hx Influenza Vaccine This Season: Yes Medications and Allergies Active Medications: Active Medications Acetaminophen (Tylenol) 650 mg PO Q4H PRN PRN Reason: Temp > 100.4 Al Hydroxide/Mg Hydroxide (Milk Of Magnesia Liq) 30 ml PO Q12H PRN PRN Reason: Mild Constipation Atorvastatin Calcium (Lipitor) 80 mg PO BID ANUM Bisacodyl (Dulcolax Supp) 10 mg RECTAL DAILY PRN PRN Reason: SEVERE CONSITIPATION Lactulose (Lactulose Liq) 30 ml PO DAILY PRN PRN Reason: SEVERE CONSITIPATION Metoclopramide HCl (Reglan Inj) 5 mg IV.PUSH Q6HR PRN; Protocol PRN Reason: NAUSEA OR VOMITING Oxybutynin Chloride (Ditropan) 5 mg PO BID [facility] Senna/Docusate Sodium (Dafne-Colace) 1 tab PO BID [facility] Sennosides (Senokot) 17.2 mg PO Q12H PRN PRN Reason: Moderate Constipation Sodium Chloride (Ns Flush) 2 ml IV.FLUSH UNSCH PRN PRN Reason: FLUSH AFTER USING IV ACCESS Temazepam (Restoril) 15 mg PO HS PRN PRN Reason: INSOMNIA Warfarin Sodium (Coumadin) 6 mg PO DAILY [facility] Allergies Allergy/AdvReac Type Severity Reaction Status Date / Time No Known Allergies Allergy Unverified 12/14/17 10:59 Home Medications Medication Instructions Recorded Confirmed Type atorvastatin 80 mg PO BID 12/14/17 12/14/17 History oxybutynin chloride 5 mg PO BID 12/14/17 12/14/17 History warfarin 6 mg PO DAILY 12/14/17 12/14/17 History Exam Vital signs: Vital Signs 12/14/17 10:29 12/14/17 10:53 12/14/17 11:51 Temperature 97.9 F Pulse Rate 152 H 141 H 132 H Respiratory Rate 28 H 17 17 Blood Pressure 133/86 138/96 H 153/94 H Pulse Oximetry 95 96 96 12/14/17 12:04 12/14/17 12:26 Temperature Pulse Rate 120 H 118 H Respiratory Rate Blood Pressure 139/96 H 147/105 H Pulse Oximetry 97 92 L Intake & Output 12/13/17 12/14/17 12/14/17 18:59 06:59 18:59 Weight 68.132 kg Narrative: GENERAL: Very pleasant talkative 82 yo female, appears somehow anxious. SKIN: Warm and dry. HEAD: Atraumatic. Normocephalic. EYES: Pupils equal and round. No scleral icterus. No injection or drainage. ENT: No nasal bleeding or discharge. Mucous membranes pink and moist. NECK: Trachea midline. No JVD. CARDIOVASCULAR: Irregular rate and rhythm. RESPIRATORY: No accessory muscle use. Clear to auscultation. Breath sounds equal bilaterally. GASTROINTESTINAL: Abdomen soft, non-tender, nondistended. Hepatic and splenic margins not palpable. MUSCULOSKELETAL: Extremities without clubbing, cyanosis, or edema. No obvious deformities. NEUROLOGICAL: Awake and alert. No obvious cranial nerve deficits. Motor grossly within normal limits. Five out of 5 muscle strength in the arms and legs. Normal speech. PSYCHIATRIC: Appropriate mood and affect; insight and judgment normal. Results - Labs CBC & Chem 7: 12/14/17 10:20 12/14/17 10:20 Labs: Laboratory Results - last 24 hr 12/14/17 12/14/17 12/14/17 10:20 10:20 10:20 WBC 7.8 RBC 3.73 L Hgb 12.9 Hct 35.8 MCV 95.9 MCH 34.5 H MCHC 35.9 RDW 13.8 Plt Count 292 MPV 8.1 Neut % (Auto) 73.9 H Lymph % (Auto) 15.3 [place] % (Auto) 8.6 H Eos % (Auto) 1.0 Baso % (Auto) 1.2 Neut # (Auto) 5.8 Lymph # (Auto) 1.2 [place] # (Auto) 0.7 Eos # (Auto) 0.1 Baso # (Auto) 0.1 WBC Differential . Differential Comment Auto diff final PT 36.1 H INR 3.6 APTT 34.2 H Sodium 141 Potassium 4.1 Chloride 105 Carbon Dioxide 27.8 Anion Gap 8 BUN 18 Creatinine 1.47 H Estimated GFR 34 L Random Glucose 125 H Calcium 8.6 Magnesium Troponin I Less than 0.02 L B-Natriuretic Peptide TSH 12/14/17 12/14/17 12/14/17 10:20 10:20 10:20 WBC RBC Hgb Hct MCV MCH MCHC RDW Plt Count MPV Neut % (Auto) Lymph % (Auto) [place] % (Auto) Eos % (Auto) Baso % (Auto) Neut # (Auto) Lymph # (Auto) [place] # (Auto) Eos # (Auto) Baso # (Auto) WBC Differential Differential Comment PT INR APTT Sodium Potassium Chloride Carbon Dioxide Anion Gap BUN Creatinine Estimated GFR Random Glucose Calcium Magnesium 2.0 Troponin I B-Natriuretic Peptide 356 H TSH 4.570 H Cancelled - Imaging Impressions Chest X-Ray 12/14/17 11:12 CONCLUSION: Increased interstitial markings and pulmonary vasculature suggestive of pulmonary edema. Caprini VTE Risk Assessment Caprini VTE Risk Assessment: Moderate/High Risk (score >= 2) Caprini Risk Assessment Model: Point Value = 1 Point Value = 2 Point Value = 3 Point Value = 5 Age 41-60 Minor surgery BMI > 25 kg/m2 Swollen legs Varicose veins or History of unexplained or recurrent spontaneous Oral contraceptives or hormone replacement Sepsis (< 1 month) Serious lung disease, including pneumonia (< 1 month) Abnormal pulmonary function Acute myocardial infarction Congestive heart failure (< 1 month) History of inflammatory bowel disease Medical patient at bed rest Age 61-74 Arthroscopic surgery Major open surgery (> 45 min) Laparoscopic surgery (> 45 min) Malignancy Confined to bed (> 72 hours) Immobilizing plaster cast Central venous access Age >= 75 History of VTE Family history of VTE Factor V Leiden Prothrombin [id number] Lupus anticoagulant Anticardiolipin antibodies Elevated serum homocysteine Heparin-induced thrombocytopenia Other congenital or acquired thrombophilia Stroke (< 1 month) Elective arthroplasty Hip, pelvis, or leg fracture Acute spinal cord injury (< 1 month) Prophylaxis Regimen: Total Risk Factor Score Risk Level Prophylaxis Regimen 0-1 Low Early ambulation 2 Moderate Order ONE of the following: *Sequential Compression Device (SCD) *Heparin 5000 units SQ BID 3-4 Higher Order ONE of the following medications: *Heparin 5000 units SQ TID *Enoxaparin/Lovenox 40 mg SQ daily (WT < 150 kg, CrCl > 30 mL/min) *Enoxaparin/Lovenox 30 mg SQ daily (WT < 150 kg, CrCl > 10-29 mL/min) *Enoxaparin/Lovenox 30 mg SQ BID (WT < 150 kg, CrCl > 30 mL/min) AND/OR *Sequential Compression Device (SCD) 5 or more Highest Order ONE of the following medications: *Heparin 5000 units SQ TID (Preferred with Epidurals) *Enoxaparin/Lovenox 40 mg SQ daily (WT < 150 kg, CrCl > 30 mL/min) *Enoxaparin/Lovenox 30 mg SQ daily (WT < 150 kg, CrCl > 10-29 mL/min) *Enoxaparin/Lovenox 30 mg SQ BID (WT < 150 kg, CrCl > 30 mL/min) AND *Sequential Compression Device (SCD) Assessment and Plan - Plan 82 yo F with sob and palpitations: Atrial fibrillation with RVR CXR: Increased interstitial markings and pulmonary vasculature suggestive of pulmonary edema. Received labetalol in the ED. HR is better controlle.d Cardiology Dr Crow recommends obs overniht restart home meds Monitor on tele Monitor INR, continue coumadin. Pharm consulted Consult cardio Dr Crow HLD contiue statin DVT ppx con coumadin
[2017-12-14] MEDS ORDERED: Metoprolol Tartrate 50 MG Tablet PO ONE (17:00)
[2017-12-14] MEDS: Senna/Docusate Sodium 8.6/50 MG Tablet PO SCH (23:22)
[2017-12-14] MEDS: Metoprolol Tartrate 25 MG Tablet PO SCH (23:23)
[2017-12-15] MEDS ORDERED: Metoprolol Tartrate 25 MG Tablet PO ONE ×2 (02:33→18:17)
[2017-12-15 07:33] LABS: Baso # (Auto) 0.1 th/mm3 (0.0-0.2); Eos % (Auto) 0.5 % (0.0-4.0); Hematocrit 36.9 % (35.0-46.0); Hemoglobin 12.3 gm/dL (11.6-15.3); Lymph % (Auto) 13.6 % (9.0-44.0); Mean Corpuscular HGB Conc 33.5 % (32.0-36.0); Mean Corpuscular Hemoglobin 32.3 pg (27.0-34.0); Mean Corpuscular Volume 96.4 fL (80.0-100.0); Mean Platelet Volume 8.3 fL (7.0-11.0); Mono # (Auto) 0.7 th/mm3 (0.0-0.9); Neut # (Auto) 5.6 th/mm3 (1.8-7.7); Neut % (Auto) 75.9 % (16.0-70.0); Platelet Count 303 th/mm3 (150-450); Red Blood Count 3.82 mil/mm3 (4.00-5.30); Red Cell Distribution Width 13.8 % (11.6-17.2); White Blood Count 7.4 th/mm3 (4.0-11.0)
[2017-12-15 07:48] LABS: Calcium 8.9 mg/dL (8.5-10.1); Potassium 3.9 meq/L (3.5-5.1)
[2017-12-15] MEDS: Senna/Docusate Sodium 8.6/50 MG Tablet PO SCH ×2 (08:26→23:49)
[2017-12-15] MEDS: Metoprolol Tartrate 25 MG Tablet PO SCH (08:33)
[2017-12-15] MEDS ORDERED: Warfarin Consult Pharmacy 1 EACH OTHER SCH (09:00)
[2017-12-15] MEDS ORDERED: dilTIAZem 60 MG Tablet PO ONE (11:00)
[2017-12-15 11:34] LABS: Prothrombin Time 50.4 sec (9.8-11.6)
--- NOTE | 2017-12-15 11:43 | P.PN ---
Subjective Interval history: Follow-up visit A. fib with RVR, supratherapeutic INR. Patient seen and examined today. Reports she is doing okay. States that her heart rate is elevated but she did not get enough sleep. States that everybody is waking her up every 2 hours. Patient states that if her heart rate continues to go up then she will "croak" and it is okay. States she is a retired nurse. She talks about her children and states that she wanted to attend the democrat that her son is going to have. Noted that she is drinking coffee. Denies pain and discomfort. Denies SOB/ dyspnea. Denies chest pain, headaches, dizziness. Denies fevers, chills, n/v/d. Denies dysuria. Physical Exam Vital signs: Vital Signs 12/14/17 11:51 12/14/17 12:04 12/14/17 12:26 Temperature Pulse Rate 132 H 120 H 118 H Respiratory Rate 17 Blood Pressure 153/94 H 139/96 H 147/105 H Pulse Oximetry 96 97 92 L 12/14/17 16:00 12/14/17 19:45 12/14/17 23:44 Temperature 97.8 F 98.1 F 98.0 F Pulse Rate 132 H 105 H 123 H Respiratory Rate 18 16 16 Blood Pressure 155/96 H 146/82 H 160/101 H Pulse Oximetry 94 L 92 L 93 L 12/15/17 03:35 12/15/17 07:31 Temperature 98.0 F 97.9 F Pulse Rate 125 H 123 H Respiratory Rate 16 18 Blood Pressure 132/91 H 157/102 H Pulse Oximetry 91 L 93 L Intake & Output 12/14/17 12/15/17 12/15/17 18:59 06:59 18:59 Intake Total 200 / 200 Balance 200 / 200 Weight 68.132 kg Intake: Oral 200 / 200 Narrative: GENERAL: This is a well-nourished, well-developed patient, in no apparent distress. SKIN: Warm and dry HEENT: Normocephalic. Pupils equal round and reactive. Nose without bleeding. Airway patent. NECK: Trachea midline. No JVD. Supple. CARDIOVASCULAR: Rapid heart rate with murmurs. No gallops, or rubs. RESPIRATORY: Clear to auscultation. Breath sounds equal bilaterally. No wheezes , rales, or rhonchi. GASTROINTESTINAL: Abdomen soft, non-tender, nondistended. Bowel Sounds normoactive x4. MUSCULOSKELETAL: Extremities without clubbing, cyanosis, or edema. NEUROLOGICAL: Awake and alert. Oriented to time, place, person. No focal neuro deficit. Moves all extremities. Normal speech. Results - Labs CBC & Chem 7: 12/15/17 06:47 12/15/17 06:47 Laboratory Results - last 24 hr 12/14/17 12/14/17 12/14/17 10:20 10:20 10:20 WBC RBC Hgb Hct MCV MCH MCHC RDW Plt Count MPV Neut % (Auto) Lymph % (Auto) Crawford % (Auto) Eos % (Auto) Baso % (Auto) Neut # (Auto) Lymph # (Auto) Crawford # (Auto) Eos # (Auto) Baso # (Auto) WBC Differential Differential Comment PT 36.1 H INR 3.6 APTT 34.2 H Sodium 141 Potassium 4.1 Chloride 105 Carbon Dioxide 27.8 Anion Gap 8 BUN 18 Creatinine 1.47 H Estimated GFR 34 L POC Glucose Random Glucose 125 H Calcium 8.6 Magnesium Troponin I Less than 0.02 L B-Natriuretic Peptide 356 H TSH 12/14/17 12/14/17 12/14/17 10:20 10:20 14:54 WBC RBC Hgb Hct MCV MCH MCHC RDW Plt Count MPV Neut % (Auto) Lymph % (Auto) Crawford % (Auto) Eos % (Auto) Baso % (Auto) Neut # (Auto) Lymph # (Auto) Crawford # (Auto) Eos # (Auto) Baso # (Auto) WBC Differential Differential Comment PT INR APTT Sodium Potassium Chloride Carbon Dioxide Anion Gap BUN Creatinine Estimated GFR POC Glucose Random Glucose Calcium Magnesium 2.0 Troponin I Less than 0.02 L B-Natriuretic Peptide TSH 4.570 H Cancelled 12/15/17 12/15/17 12/15/17 01:41 06:47 06:47 WBC 7.4 RBC 3.82 L Hgb 12.3 Hct 36.9 MCV 96.4 MCH 32.3 MCHC 33.5 RDW 13.8 Plt Count 303 MPV 8.3 Neut % (Auto) 75.9 H Lymph % (Auto) 13.6 Crawford % (Auto) 9.0 H Eos % (Auto) 0.5 Baso % (Auto) 1.0 Neut # (Auto) 5.6 Lymph # (Auto) 1.0 Crawford # (Auto) 0.7 Eos # (Auto) 0.0 Baso # (Auto) 0.1 WBC Differential . Differential Comment Auto diff final PT INR APTT Sodium 140 Potassium 3.9 Chloride 106 Carbon Dioxide 23.0 Anion Gap 11 BUN 23 H Creatinine 1.30 H Estimated GFR 39 L POC Glucose 119 H Random Glucose 133 H Calcium 8.9 Magnesium Troponin I B-Natriuretic Peptide TSH 12/15/17 12/15/17 06:47 10:51 WBC RBC Hgb Hct MCV MCH MCHC RDW Plt Count MPV Neut % (Auto) Lymph % (Auto) Crawford % (Auto) Eos % (Auto) Baso % (Auto) Neut # (Auto) Lymph # (Auto) Crawford # (Auto) Eos # (Auto) Baso # (Auto) WBC Differential Differential Comment PT 50.4 H D INR 5.0 APTT 35.3 H Sodium Potassium Chloride Carbon Dioxide Anion Gap BUN Creatinine Estimated GFR POC Glucose Random Glucose Calcium Magnesium Troponin I B-Natriuretic Peptide TSH Assessment and Plan - Assessment (1) Atrial fibrillation with RVR Code(s): I48.91 - Unspecified atrial fibrillation Status: Acute (2) Non-compliance Code(s): Z91.19 - Patient's noncompliance with other medical treatment and regimen Status: Acute - Plan Patient is a pleasant 82-year-old female with past medical history significant for hypertension hyperlipidemia and previous A. fib who came into the hospital sent by her PCP. Atrial fibrillation with RVR -EKG reviewed A. fib RVR HR 143 -Patient was given multiple Metroprolol IV push and PO -On exam today continues to have elevated heart rate. Will increase metoprolol and add Cardizem. -Cardizem 60 mg 1 dose now, metoprolol 50 mg 1 dose now -We will continue to monitor and adjust medications -Cardiology consulted for further evaluation recommendation -Check echocardiogram -Monitor labs Hypertension, uncontrolled -History of noncompliance. Started on metoprolol, Cardizem now. -Monitor BP trend Supratherapeutic INR -Patient on Coumadin at home. Hold for now -INR 3.6 on admit, now 5.0 -Monitor trend DVT prop SCDs
--- NOTE | 2017-12-15 15:10 | ECHRPT ---
Indication: A FIB FLUTTER CONCLUSIONS Mildly dilated left ventricle. Wall thickness is measured at the upper limits of normal. The left ventricular systolic function is low normal with an estimated ejection fraction in the rang e of 50- 55%. Trace mitral valve regurgitation. Mitral annular calcification is present. Aortic valve sclerosis is present. Trace aortic valve regurgitation. The estimated pulmonary arterial pressure is 31 mmHg. BP: / HR: Rhythm: MEASUREMENTS (Male / Female) Normal Values Technical Quality: 2D ECHO LV Diastolic Diameter PLAX 4.1 cm 4.2 - 5.9 / 3.9 - 5.3 cm LV Systolic Diameter PLAX 3.2 cm IVS Diastolic Thickness 1.0 cm 0.6 - 1.0 / 0.6 - 0.9 cm LVPW Diastolic Thickness 0.6 cm 0.6 - 1.0 / 0.6 - 0.9 cm LV Relative Wall Thickness 0.4 RV Internal Dim ED PLAX 1.8 cm DOPPLER Mitral E Point Velocity 124.0 cm/s TR Peak Velocity 228.0 cm/s TR Peak Gradient 20.8 mmHg Right Atrial Pressure 10.0 mmHg Pulmonary Artery Systolic Pressu 30.8 mmHg Right Ventricular Systolic Press 30.8 mmHg FINDINGS LEFT VENTRICLE Mildly dilated left ventricle. Wall thickness is measured at the upper limits of normal. The left ventricular systolic function is low normal with an estimated ejection fraction in the rang e of 50- 55%. RIGHT VENTRICLE Normal right ventricular size and systolic function. LEFT ATRIUM The left atrial size is normal. RIGHT ATRIUM The right atrial size is normal. ATRIAL SEPTUM Normal atrial septal thickness without atrial level shunting by limited color doppler interrogation. AORTA The aortic root and proximal ascending aorta are normal in size on limited imaging. MITRAL VALVE Trace mitral valve regurgitation. Mitral annular calcification is present. AORTIC VALVE Aortic valve sclerosis is present. Trace aortic valve regurgitation. TRICUSPID VALVE The estimated pulmonary arterial pressure is 31 mmHg. PULMONARY VALVE No pulmonary valve regurgitation or stenosis. VESSELS The inferior vena cava is normal in size. PERICARDIUM No pericardial effusion. Dave Crow MD, FACC, [facility] [place] (Electronically Signed) Final Date:15 December 2017 15:09
--- NOTE | 2017-12-15 15:21 | MB ---
cc: Dave Crow MD DATE: 12/15/2017 HISTORY OF PRESENT ILLNESS: Corinne is a very pleasant 82-year-old lady with history of chronic atrial fibrillation, paroxysmal atrial fibrillation. She came to my office yesterday complaining of a chief complaint of shortness of breath, which was moderate, acute onset, found to be in atrial fibrillation with rapid ventricular response. Her grandson drove her to the emergency room. She was admitted for further evaluation and management due to rapid ventricular response, placed on Lopressor 25 b.i.d. Heart rate improved, but still in the 110s to 120s. The patient's shortness of breath is significantly better. Otherwise, denies any fever, chills, cough, GI or bleeding, PND or orthopnea, syncope or dizziness. PAST MEDICAL HISTORY: Per history of present illness. She has a history of carpal tunnel syndrome, hyperlipidemia, hypertension, history of shoulder replacement, right knee replacement. ALLERGIES: NONE. SOCIAL HISTORY: Denies tobacco use. She drinks alcohol 4 more times a week. MEDICATIONS IN THE HOSPITAL: 1. Lipitor 80 mg daily. 2. Cardizem 30 mg q.i.d. 3. Metoprolol 50 mg b.i.d. PHYSICAL EXAMINATION: VITAL SIGNS: Temperature 97.9, pulse 117, blood pressure 146/100, respiratory rate 17, sats 95% on room air. GENERAL: She is alert and oriented x 3, in no acute distress. NECK: Supple. No JVD. No bruit. CARDIOVASCULAR: S1, S2. No murmurs, rubs or gallops. LUNGS: Clear to auscultation bilaterally. ABDOMEN: Soft, nontender, and nondistended with positive bowel sounds. EXTREMITIES: No lower extremity edema. LABORATORY DATA: White count 7.4, hemoglobin 12.3, hematocrit 36.9, platelet count is 303. INR is 5.03, 3.6 on admission. Sodium 140, potassium 3.9, chloride 106, bicarbonate 23.0, BUN 23, creatinine 1.30, glucose 133. Troponin less than 0.02. BNP is 256. TSH is 4.70. Magnesium 2.0. IMAGING STUDIES: Chest x-ray increased interstitial markings and pulmonary vascular picture suggestive of pulmonary edema. EKG at 1411 12/14/2017, atrial fibrillation at a rate of 143 beats per minute. DIAGNOSES: 1. Atrial fibrillation with rapid ventricular response. 2. Dyspnea. 3. Decompensated congestive heart failure. 4. Supratherapeutic INR. 5. Hypertension. 6. Acute renal failure. DISCUSSION: Her Lopressor has already been increased from 25 b.i.d. to 50 b.i.d. and Cardizem has been added, which is appropriate. Coumadin is being held due to supratherapeutic INR. The patient's dyspnea has resolved. I suspect her decompensated congestive heart failure is primarily due to going into atrial fibrillation with rapid ventricular response and clinically, she is already improving and no longer having dyspnea with improved rate control; however, she is not at goal. Goal rates would be below 100 and above 60 beats per minute. We will follow further trends in heart rate and blood pressure and symptoms. Followup INR in the a.m. MD AMBERLY Zambrano/MARVIN , 02:28 PM , 03:19 PM
[2017-12-15] MEDS: dilTIAZem 30 MG Tablet PO SCH ×3 (15:43→23:49)
[2017-12-15] MEDS: Metoprolol Tartrate 50 MG Tablet PO SCH ×2 (15:44→23:49)
[2017-12-16] MEDS ORDERED: dilTIAZem 30 MG Tablet PO SCH (07:34)
[2017-12-16 07:59] LABS: INR 3.6 Ratio; Prothrombin Time 36.6 sec (9.8-11.6)
[2017-12-16] MEDS: Metoprolol Tartrate 50 MG Tablet PO SCH ×4 (09:08→17:34)
[2017-12-16] MEDS: Senna/Docusate Sodium 8.6/50 MG Tablet PO SCH ×2 (09:09→22:02)
[2017-12-16] MEDS: dilTIAZem CD 240 MG Capsule PO SCH (09:09)
[2017-12-16] MEDS ORDERED: LORazepam 1 MG Tablet PO ONE (11:41)
[2017-12-16] MEDS ORDERED: Metoprolol Tartrate 25 MG Tablet PO ONE (12:15)
--- NOTE | 2017-12-16 13:02 | P.PNCA ---
Subjective Interval history: alert in nad Physical Exam Vital signs: Vital Signs 12/15/17 15:48 12/15/17 19:58 12/15/17 20:00 Temperature 97.7 F 97.6 F Pulse Rate 114 H 107 H 101 H Respiratory Rate 18 16 Blood Pressure 136/111 H 117/86 Pulse Oximetry 97 93 L 97 12/15/17 23:31 12/16/17 03:55 12/16/17 07:54 Temperature 98.2 F 98.0 F Pulse Rate 88 118 H Respiratory Rate 16 16 Blood Pressure 111/62 141/98 H Pulse Oximetry 94 L 94 L 94 L 12/16/17 08:00 Temperature 98.3 F Pulse Rate 125 H Respiratory Rate 18 Blood Pressure 141/107 H Pulse Oximetry 93 L Intake & Output 12/15/17 12/16/17 12/16/17 18:59 06:59 18:59 Intake Total 960 / 960 Balance 960 / 960 Intake: Oral 960 / 960 Other: # Voids 5 # Bowel Movements 1 Assessment and Plan - Assessment (1) Atrial fibrillation with RVR Code(s): I48.91 - Unspecified atrial fibrillation Status: Acute (2) Non-compliance Code(s): Z91.19 - Patient's noncompliance with other medical treatment and regimen Status: Acute - Attending Attestation 1.) AFib - rvr continues, consult Dr Rogers, continue coumadin, loprssor, diltiazem
--- NOTE | 2017-12-16 14:51 | P.PN ---
Subjective Interval history: Follow-up visit A. fib with RVR, supratherapeutic INR. Patient seen and examined today. Reports her slug press operator came in and told her that she needs to still stay at the hospital. Continues to have elevated heart rate. Patient appears to be anxious. States that she wants to go home and open up a pinot grigio. Appears upset that she is testing at the hospital. Discussed with patient to continue to take her medications throughout her stay. We will continue to hold on on her Coumadin since she is supratherapeutic. Denies pain and discomfort. Denies SOB/ dyspnea. Denies chest pain, headaches, dizziness. Denies fevers, chills, n/v/d. Denies hematuria, dysuria. Physical Exam Vital signs: Vital Signs 12/15/17 15:48 12/15/17 19:58 12/15/17 20:00 Temperature 97.7 F 97.6 F Pulse Rate 114 H 107 H 101 H Respiratory Rate 18 16 Blood Pressure 136/111 H 117/86 Pulse Oximetry 97 93 L 97 12/15/17 23:31 12/16/17 03:55 12/16/17 07:54 Temperature 98.2 F 98.0 F Pulse Rate 88 118 H Respiratory Rate 16 16 Blood Pressure 111/62 141/98 H Pulse Oximetry 94 L 94 L 94 L 12/16/17 08:00 12/16/17 12:00 12/16/17 13:32 Temperature 98.3 F 97.5 F L Pulse Rate 125 H 88 101 H Respiratory Rate 18 18 Blood Pressure 141/107 H 109/80 Pulse Oximetry 93 L 91 L Intake & Output 12/15/17 12/16/17 12/16/17 18:59 06:59 18:59 Intake Total 960 / 960 Balance 960 / 960 Intake: Oral 960 / 960 Other: # Voids 5 # Bowel Movements 1 Narrative: GENERAL: This is a well-nourished, well-developed patient, in no apparent distress. SKIN: Warm and dry HEENT: Normocephalic. Pupils equal round and reactive. Nose without bleeding. Airway patent. NECK: Trachea midline. No JVD. Supple. CARDIOVASCULAR: Rapid heart rate with murmurs. No gallops, or rubs. RESPIRATORY: Clear to auscultation. Breath sounds equal bilaterally. No wheezes , rales, or rhonchi. GASTROINTESTINAL: Abdomen soft, non-tender, nondistended. Bowel Sounds normoactive x4. MUSCULOSKELETAL: Extremities without clubbing, cyanosis, or edema. NEUROLOGICAL: Awake and alert. Oriented to time, place, person. No focal neuro deficit. Moves all extremities. Normal speech. Results - Labs CBC & Chem 7: 12/15/17 06:47 12/15/17 06:47 Laboratory Results - last 24 hr 12/16/17 12/16/17 12/16/17 06:20 06:20 13:50 PT 36.6 H D INR 3.6 APTT 32.7 H POC Glucose 114 H Assessment and Plan - Assessment (1) Atrial fibrillation with RVR Code(s): I48.91 - Unspecified atrial fibrillation Status: Acute (2) Non-compliance Code(s): Z91.19 - Patient's noncompliance with other medical treatment and regimen Status: Acute - Plan Patient is a pleasant 82-year-old female with past medical history significant for hypertension hyperlipidemia and previous A. fib who came into the hospital sent by her PCP. Atrial fibrillation with RVR -EKG reviewed A. fib RVR HR 143 -Patient was given multiple Metroprolol IV push and PO -Cardiology consulted for further evaluation recommendation -Echocardiogram left ventricular systolic function is low normal with an EF of 50- 55%. -Metoprolol increased to 50 mg 3 times daily, additional 25 mg now, Cardizem 240 mg extended release daily -Ativan 1mg now. -Monitor labs Alcohol use -drinks 4x per week -Will give Ativan Prn Hypertension, uncontrolled -History of noncompliance. Started on metoprolol, Cardizem now. -Monitor BP trend Supratherapeutic INR -Patient on Coumadin at home. Hold for now -INR 3.6 on admit, 5.0 --> 3.6 -Monitor trend DVT prop SCDs Code Status: Full Code Discussed Condition With: Patient, nursing, Dr. Quintero Discharge Planning: DC home when clinically improved
--- NOTE | 2017-12-16 15:48 | P.DCO ---
- Physical Therapy Order: Evaluate and treat - Home Health Nursing Order: Medical education, Signs/symptoms of disease process, Medication education-adverse effect, Nursing assessment with vital signs - Certification I have seen patient Corinne Grey on 12/16/17. My clinical findings support the need for the requested home health care services because: Limited mobility due to disease progression, Patient has SOB, Medication compliance is questionable, High risk of falls I certify that my clinical findings support that this patient is homebound because: Unsteady gait/balance, Poor cardiac reserve
[2017-12-16] MEDS ORDERED: LORazepam 1 MG Tablet PO PRN (18:45)
[2017-12-17 07:50] LABS: Activated Partial Thrombo Time 28.3 sec (24.3-30.1); INR 1.9 Ratio; Prothrombin Time 18.9 sec (9.8-11.6)
--- NOTE | 2017-12-17 08:41 | P.PN ---
Physical Exam Vital signs: Vital Signs 12/16/17 12:00 12/16/17 13:32 12/16/17 16:00 Temperature 97.5 F L 98.0 F Pulse Rate 88 101 H 76 Respiratory Rate 18 16 Blood Pressure 109/80 113/71 Pulse Oximetry 91 L 94 L 12/17/17 07:25 12/17/17 07:48 Temperature 97.7 F Pulse Rate 84 115 H Respiratory Rate 18 Blood Pressure 165/75 H Pulse Oximetry 94 L Results - Labs CBC & Chem 7: 12/15/17 06:47 12/15/17 06:47 Laboratory Results - last 24 hr 12/16/17 12/16/17 12/17/17 13:50 16:48 06:20 PT 18.9 H D INR 1.9 APTT 28.3 POC Glucose 114 H 110 Assessment and Plan - Assessment (1) Atrial fibrillation with RVR Code(s): I48.91 - Unspecified atrial fibrillation Status: Acute (2) Non-compliance Code(s): Z91.19 - Patient's noncompliance with other medical treatment and regimen Status: Acute - Plan Patient is a pleasant 82-year-old female with past medical history significant for hypertension hyperlipidemia and previous A. fib who came into the hospital sent by her PCP. Atrial fibrillation with RVR -EKG reviewed A. fib RVR HR 143 -Patient was given multiple Metroprolol IV push and PO -Cardiology consulted for further evaluation recommendation -Echocardiogram left ventricular systolic function is low normal with an EF of 50- 55%. -Metoprolol increased to 50 mg 3 times daily, additional 25 mg now, Cardizem 240 mg extended release daily -Ativan 1mg now. -Monitor labs Alcohol use -drinks 4x per week -Will give Ativan Prn Hypertension, uncontrolled -History of noncompliance. Started on metoprolol, Cardizem now. -Monitor BP trend Supratherapeutic INR -Patient on Coumadin at home. Hold for now -INR 3.6 on admit, 5.0 --> 3.6 -Monitor trend DVT prop SCDs Discharge Planning: DC home when clinically improved
[2017-12-17] MEDS ORDERED: Metoprolol Tartrate 50 MG Tablet PO SCH (08:45)
[2017-12-17] MEDS: dilTIAZem CD 240 MG Capsule PO SCH (08:58)
[2017-12-17] MEDS: Senna/Docusate Sodium 8.6/50 MG Tablet PO SCH (08:59)
[2017-12-17] MEDS ORDERED: Warfarin Consult Pharmacy 1 EACH OTHER SCH (09:00)
[2017-12-17 10:25] LABS: Calcium 8.5 mg/dL (8.5-10.1); Carbon Dioxide 25.1 meq/L (21.0-32.0); Potassium 3.6 meq/L (3.5-5.1)
--- NOTE | 2017-12-17 12:50 | MB ---
cc: Maksim Rogers MD,Dave Ladd,Zaynab SON DATE: 12/17/2017 REFERRING PHYSICIAN: Dr. Crow. REASON FOR CONSULTATION: Management of persistent atrial fibrillation with tachycardia. HISTORY OF PRESENT ILLNESS: Ms. Grey is an 82-year-old lady who presented to Dr. Ayala's office with dyspnea and tachycardia. She does have persistent atrial fibrillation, has been on Coumadin. She was on metoprolol and Cardizem 30 mg q.i.d. She was noted to have heart rate in the 120s to 140s and sent to the [facility]. She was admitted to observation unit and metoprolol has been increased to 100 mg b.i.d., along with Cardizem-CD 240 mg daily. I did review the telemetry tracing overnight, heart rate in the 70s-100. Overall, her heart rate is controlled. No additional complaints and dyspnea is better. Echocardiogram was done, showed EF of 50-55% with trace AR. Hematocrit showed 37 with INR 1.9. On Coumadin, INR has been labile. The patient does have hypertension and hypercholesterolemia in the past. PAST MEDICAL HISTORY: As above. Also had carpal tunnel disease. PAST SURGICAL HISTORY: Including a shoulder and knee replacement. ALLERGIES: NO KNOWN DRUG ALLERGIES. SOCIAL HISTORY: She drinks alcohol in moderate amount. She does not smoke. REVIEW OF SYSTEMS: HEENT: Normal. GASTROINTESTINAL: No nausea or vomiting. GENITOURINARY: No dysuria. MUSCULOSKELETAL: Fatigue. CARDIOVASCULAR: As above. CHEST: Some dyspnea. ENDOCRINE: Normal. SKIN: Normal. PSYCHIATRIC: Normal. CENTRAL NERVOUS SYSTEM: No dizziness. PHYSICAL EXAMINATION: VITAL SIGNS: Patient has a heart rate of 60s-100 with underlying atrial fibrillation, so far rate is better. Blood pressure is 140/100 with respiratory rate is 12, O2 saturation is 95% on room air. HEENT: Normal oral exam. PERRLA. ENDOCRINE: There is no thyroid enlargement. LYMPHATICS: There is no lymphadenopathy. RESPIRATORY: Decreased breath sounds bilaterally, but no crackles. CARDIOVASCULAR: Irregular heart rate is controlled. No loud murmurs. ABDOMEN: Active bowel sounds all 4 quadrants. GENITOURINARY: Deferred. MUSCULOSKELETAL: All range of motion is intact. SKIN: There is no ecchymosis. PSYCHIATRIC: The patient has good mood and good judgment. LABORATORY STUDIES: Hematocrit of 37. EKG showed atrial fibrillation with tachycardia. ASSESSMENT: 1. Persistent atrial fibrillation with intermittent tachycardia. 2. Coumadin therapy. 3. Hypertension. 4. Hypercholesterolemia. 5. Dyspnea. PLAN: I do agree with current rate control regimen including metoprolol 100 mg b.i.d. along with long-acting Cardizem. I will continue Coumadin to keep between 2 and 3. I also discussed the option of possible pacemaker plus AV node ablation, but so far we can try the medication and try higher dosage of medication and see how she does. I will continue atorvastatin for hypercholesterolemia. Continue Cardizem and metoprolol for hypertension also. I do think the patient is okay to discharge home with outpatient followup. No need for additional diuretics. I would like to thank Dr. Crow and Dr. Ladd for letting me participate in the care of Ms. Grey. MD JOSE Zhu/MARVIN , 12:00 PM , 12:48 PM
--- NOTE | 2017-12-17 12:57 | P.DS ---
Date of admission: 12/14/17 14:00 Primary care physician: Sue Jhaveri DO Attending physician on discharge: Perfecto Quintero Anticipated date of discharge: 12/17/17 Brief History from admission: Patient is a pleasant 82-year-old female with past medical history significant for hypertension hyperlipidemia and previous A. fib diagnosed when she was undergoing a carpal tunnel surgery several months ago, who presents with chief complaint of shortness of breath and palpitations that woke her from sleep at 1 AM today. She states that she is feeling much better now but she went to her primary care doctor's office who sent her here thinking she may need to be admitted as she was found to be in A. fib with RVR there. She denies chest pain at this time reports only mild dyspnea. No fevers cough congestion dysuria leg swelling. She is currently taking 6 mg of Coumadin daily and states that she did take it this morning. Patient cardiology Dr Is Dr Vanessa who recommends admission in obs overnight, restart patient home meds. Patient feels better at this time and wants to go home DS: Diagnosis - Discharge Diagnosis (1) Atrial fibrillation with RVR Status: Acute (2) Non-compliance Status: Acute DS: Medications - Discharge Medications Prescriptions: atorvastatin 80 mg PO BID #30 tab diltiazem HCl 240 mg PO DAILY #30 cap metoprolol tartrate 100 mg PO BID #60 tab warfarin [Coumadin] 3 mg PO DAILY@1600 #10 tab DS: Summary Hospital Course: Patient is a pleasant 82-year-old female with past medical history significant for hypertension hyperlipidemia and previous A. fib who came into the hospital sent by her PCP. Patient found to be on A. fib with RVR heart rate has been in the 140s-150s. Patient has been given multiple trouble IV push. Cardiology has been consulted and was followed by Dr. Crow. Patient was started on Metroprolol and titrated to metoprolol 100 mg twice daily. Her Cardizem was started from 30 mg 4 times daily and has been increase and will be discharged on Cardizem 240 mg extended release daily. Patient also had an echocardiogram left ventricular systolic function is low normal with an EF of 50- 55%. The regimen improved her heart rate now in the 80s 90s. She was on Coumadin and outpatient and came in with supratherapeutic INR. Today's INR was 1.9. Will restart the Coumadin half the dose from her previous and she will need another INR to be done on Tuesday. Patient appears to also have anxiety issues, has been drinking alcohol in the outpatient about 4-5 times per week. She was given Ativan as needed during her stay that also helped improved her heart rate , possible withdrawals. Patient has met maximal benefits of hospitalization. Clinically stable for discharge. Needs to follow-up with Dr. Crow and her PCP on discharge. - Time Spent with Patient Total time spent providing and/or coordinating discharge services: Less than 30 minutes - Quality: VTE Deep Vein Thrombosis/Pulmonary Embolism Present on Admission: No Exam Vital signs: Vital Signs 12/16/17 13:32 12/16/17 16:00 12/17/17 07:25 Temperature 98.0 F 97.7 F Pulse Rate 101 H 76 84 Respiratory Rate 16 18 Blood Pressure 113/71 165/75 H Pulse Oximetry 94 L 94 L 12/17/17 07:48 12/17/17 12:00 12/17/17 12:34 Temperature 97.6 F Pulse Rate 115 H 83 87 Respiratory Rate 16 Blood Pressure 125/74 Pulse Oximetry Narrative: GENERAL: This is a well-nourished, well-developed patient, in no apparent distress. SKIN: Warm and dry HEENT: Normocephalic. Pupils equal round and reactive. Nose without bleeding. Airway patent. NECK: Trachea midline. No JVD. Supple. CARDIOVASCULAR: Irregular HR, increased rate with murmurs. No gallops, or rubs. RESPIRATORY: Clear to auscultation. Breath sounds equal bilaterally. No wheezes , rales, or rhonchi. GASTROINTESTINAL: Abdomen soft, non-tender, nondistended. Bowel Sounds normoactive x4. MUSCULOSKELETAL: Extremities without clubbing, cyanosis, or edema. NEUROLOGICAL: Awake and alert. Oriented to time, place, person. No focal neuro deficit. Moves all extremities. Normal speech. Results Procedures completed during hospitalization: None Labs on day of discharge: Labs from last 24 hours 12/17/17 12/17/17 12/16/17 06:20 06:20 16:48 PT 18.9 H D INR 1.9 APTT 28.3 Sodium 140 Potassium 3.6 Chloride 107 Carbon Dioxide 25.1 Anion Gap 8 BUN 24 H Creatinine 1.46 H Estimated GFR 34 L POC Glucose 110 Random Glucose 92 Calcium 8.5 12/16/17 13:50 PT INR APTT Sodium Potassium Chloride Carbon Dioxide Anion Gap BUN Creatinine Estimated GFR POC Glucose 114 H Random Glucose Calcium - Impressions ITS Impressions Chest X-Ray 12/14/17 11:12 CONCLUSION: Increased interstitial markings and pulmonary vasculature suggestive of pulmonary edema. Discharge Plan - Discharge Disposition Patient Disposition: W/Home Health Service - Discharge Condition Condition: Stable - Discharge Order Discharge Orders: Discharge Order (Routine); Ordered 12/17/17 Ordered By: Aimee Bishop Cardiology Clear for Discharge (Routine); Ordered 12/17/17 Ordered By: Maksim Rogers - Physicians Team Primary Care Provider: Sue Jhaveri Attending Provider: Perfecto Quintero Other Providers: Dave Crow MD ; Maksim Rogers MD
--- NOTE | 2017-12-17 13:15 | P.PNCA ---
Subjective Interval history: alert in nad Physical Exam Vital signs: Vital Signs 12/16/17 13:32 12/16/17 16:00 12/17/17 07:25 Temperature 98.0 F 97.7 F Pulse Rate 101 H 76 84 Respiratory Rate 16 18 Blood Pressure 113/71 165/75 H Pulse Oximetry 94 L 94 L 12/17/17 07:48 12/17/17 12:00 12/17/17 12:34 Temperature 97.6 F Pulse Rate 115 H 83 87 Respiratory Rate 16 Blood Pressure 125/74 Pulse Oximetry Assessment and Plan - Assessment (1) Atrial fibrillation with RVR Code(s): I48.91 - Unspecified atrial fibrillation Status: Acute (2) Non-compliance Code(s): Z91.19 - Patient's noncompliance with other medical treatment and regimen Status: Acute - Plan 1.) Atrial fib - rate marginally controlled, seen by Dr Rogers, continue lopressor 100 mg bid, cardizem cd 240 mg qd, coumadin
== END 2017-12-17 18:05 | disposition home or self-care (01) ==
LOC: NEPGCP 10:18 → NEDA 10:18 → NEPE 10:18 → NEDH 16:05 → NEPGCP 17:21
PROVIDERS: ADMIT Internal Medicine; ATTEND Internal Medicine
DX: N17.9 Acute kidney failure, unspecified; I48.1 Persistent atrial fibrillation; E78.5 Hyperlipidemia, unspecified; I50.9 Heart failure, unspecified; I35.0 Nonrheumatic aortic (valve) stenosis; Z79.01 Long term (current) use of anticoagulants; Z91.19 Patient's noncompliance with other medical treatment and regimen; E78.00 Pure hypercholesterolemia, unspecified; Z87.891 Personal history of nicotine dependence; F41.9 Anxiety disorder, unspecified; Z79.899 Other long term (current) drug therapy; I48.0 Paroxysmal atrial fibrillation; R79.1 Abnormal coagulation profile; I11.0 Hypertensive heart disease with heart failure; I48.2 Chronic atrial fibrillation